=== PATIENT | male | born 1965 | race Caucasian/White ===

== ENCOUNTER → 2016-12-18 | Outpatient (CLI) | payer BC ==
[~2016-12-18] MED LIST: LORTAB 5/500 501 TAB PO; TYLENOL 500MG500 MG PO; ULTRAM PO; ZYRTEC 10MG10 MG PO
== END ==
LOC: COL.RAD 08:46
DX: M25.512 Pain in left shoulder (principal)
CPT/HCPCS: J3301; Q9967

== ENCOUNTER → 2017-10-31 | Outpatient (CLI) | payer BC | LOC: COL.RAD 10:00 | DX: M25.512 Pain in left shoulder (principal) | CPT/HCPCS: J3301; Q9967 ==